=== PATIENT | male | born 1975 | race Two or more races ===

== ENCOUNTER 2025-01-31 17:38 | Outpatient (CLI) | payer MEDICARE, SELFPAY | END 2025-01-31 17:39 | disposition home or self-care (01) | LOC: AMB 02-01 09:18 | PROVIDERS: Visit Provider Emergency Medicine | DX: R56.9 Unspecified convulsions (principal) | CPT/HCPCS: A0425; A0429 ==

== ENCOUNTER 2025-01-31 18:10 | Emergency (ER) | payer MEDICARE, SELFPAY ==
[2025-01-31 18:27] VITALS: BP 129/90; PULSE 97; RESP 18; TEMP 37; O2SAT 95; BMI 25.0
--- NOTE | 2025-01-31 18:48 | ED.SEIZURE ---
HPI - Seizure General Chief Complaint: Seizure Stated Complaint: ill Time Seen by Provider: 01/31/25 18:21 History of Present Illness HPI Narrative: This 49-year-old male comes in from inpatient treatment for chemical dependency, alcohol in particular, because of a seizure. He has not been taking any alcohol and has been in treatment for a month. This is a 3 month program that he is currently in. He has a history of a seizure and had been on Wellbutrin in the past. He has resumed Wellbutrin and states that he is taking 300 mg in the morning and 150 mg in the evening. He states that his doctor prescribed this for him. Related Data Home Medications ?Medication ?Instructions ?Recorded ?Confirmed benztropine 0.5 mg tablet 0.5 mg PO DAILY 01/31/25 01/31/25 bupropion HCl 300 mg 24 hr tablet, 300 mg PO DAILY 01/31/25 01/31/25 extended release fluoxetine 20 mg capsule 20 mg PO DAILY 01/31/25 01/31/25 hydroxyzine pamoate 50 mg capsule 50 mg PO BID 01/31/25 01/31/25 mirtazapine 30 mg disintegrating 30 mg PO DAILY 01/31/25 01/31/25 tablet prazosin 5 mg capsule 5 mg PO DAILY 01/31/25 01/31/25 risperidone 3 mg tablet (Risperdal) 3 mg PO DAILY 01/31/25 01/31/25 rosuvastatin 5 mg tablet (Crestor) 5 mg PO DAILY 01/31/25 01/31/25 Allergies Allergy/AdvReac Type Severity Reaction Status Date / Time No Known Drug Allergies Allergy Verified 01/31/25 18:23 Review of Systems Status of ROS: Reports: 10 or more systems reviewed and unremarkable except as noted in History and below Narrative: Constitutional: No fevers, no weight gain or loss. Eyes: No discharge. No vision changes. HENT: No congestion, no sore throat, no ear pain. Cardiovascular: No chest pain, no palpitations. Respiratory: No shortness of breath, no wheezes, no cough. Gastrointestinal: No abdominal pain, no vomiting, no diarrhea. Genitourinary: No dysuria, no hematuria. Musculoskeletal: Normal range of motion. Skin: No rashes, no pruritis. Neurological: No dizziness, weakness, sensory change, speech change. Endo/Heme/Allergies: No bruising or bleeding. No polydipsia. Pysch: no suicidality, no anxiety, no insomnia. All other systems reviewed and are negative. Exam Narrative: Exam Narrative: Constitutional: Well-developed, well-nourished, no acute distress. HEENT: Normocephalic, atraumatic. Neck: Normal range of motion. Nontender. Supple. Heart: Regular. No murmurs. Normal rate. Intact distal pulses. Lungs: Clear to auscultation. No chest discomfort. No wheezes, rhonchi, or rales. Abdomen: Normal bowel sounds. Nontender. No rebound tenderness. Genitalia: Deferred. Back: No midline tenderness. Normal range of motion. Extremities: Normal range of motion. No injury. Skin: Intact. No rash. Warm. No erythema or pallor. Neurologic: No altered sensation. No weakness. Alert and oriented. Psychiatric: No suicidality. No depression. No insomnia. He reports anxiety symptoms. Nursing notes and vitals signs are reviewed. Const: Vital Signs, click to edit/add: Vital Signs - 24 hr 01/31/25 18:27 Temperature 98.6 F Pulse Rate [Pulse Oximeter] 97 Respiratory Rate 18 Blood Pressure [Ri t Upper Arm] 129/90 H Pulse Oximetry 95 Oxygen Delivery Me thod Room Air Course Vital Signs Vital signs: Initial Vital Signs Temperature 98.6 F 01/31/25 18:27 Temperature Source Temporal Artery Scan 01/31/25 18:27 Pulse Rate 97 01/31/25 18:27 Respiratory Rate 18 01/31/25 18:27 Blood Pressure 129/90 H 01/31/25 18:27 Blood Pressure Mean 103 01/31/25 18:27 Blood Pressure Position Sitting 01/31/25 18:27 Pulse Oximetry 95 01/31/25 18:27 Oxygen Delivery Method Room Air 01/31/25 18:27 Vital Signs Temperature 98.6 F 01/31/25 18:27 Pulse Rate 97 01/31/25 18:27 Respiratory Rate 18 01/31/25 18:27 Blood Pressure 129/90 H 01/31/25 18:27 Pulse Oximetry 95 01/31/25 18:27 Oxygen Delivery Method Room Air 01/31/25 18:27 Temperature 98.6 F 01/31/25 18:27 Pulse Rate 97 01/31/25 18:27 Respiratory Rate 18 01/31/25 18:27 Blood Pressure 129/90 H 01/31/25 18:27 Pulse Oximetry 95 01/31/25 18:27 Oxygen Delivery Method Room Air 01/31/25 18:27 MDM - Seizure MDM Narrative Medical decision making narrative: This patient comes in because of his seizure that occurred prior to arrival. This happened while he was in treatment for alcohol addiction. He has not had any alcohol for more than a month. He is however taking Wellbutrin despite having history of a seizure. This medicine is absolutely contraindicated and most likely the cause for his seizure. He states that his doctor prescribed this medicine for him. I advised him to discontinue this medicine and avoid taking it any time again in the future. The patient did receive an oral dose of Ativan 1 mg. He has normal exam and feels back to normal at this point. He is okay to return to treatment center. Discharge Plan Discharge Clinical Impression: Seizure Patient Disposition: Home w/ Parent or Adult Condition: Stable Additional Instructions: Discontinue Wellbutrin completely and never take it again as it is absolutely contraindicated when there is a history of seizure. Okay to resume treatment in the inpatient facility otherwise as planned. Follow up with MD for ongoing management. Prescriptions: No Action bupropion HCl 300 mg tablet extended release 24 hr 300 mg PO DAILY fluoxetine 20 mg capsule 20 mg PO DAILY benztropine 0.5 mg tablet 0.5 mg PO DAILY hydroxyzine pamoate 50 mg capsule 50 mg PO BID mirtazapine 30 mg tablet,disintegrating 30 mg PO DAILY risperidone [Risperdal] 3 mg tablet 3 mg PO DAILY prazosin 5 mg capsule 5 mg PO DAILY rosuvastatin [Crestor] 5 mg tablet 5 mg PO DAILY Stand Alone Forms: [employer] Info Instructions
== END 2025-01-31 19:56 | disposition home or self-care (01) ==
PROVIDERS: Emergency Provider Emergency Medicine Emergency Medical Services
DX: R56.9 Unspecified convulsions (principal)
CPT/HCPCS: 99283; 99284; A9270